=== PATIENT | female | born 1965 | race Two or more races ===

== ENCOUNTER 2017-08-31 11:13 | Outpatient (CLI) | payer OTHER ==
[~2017-08-31] VITALS: Ht 152.4 cm; Wt 59.0 kg
[2017-08-31] MEDS ORDERED: CEFUROXIME500 MG PO (12:37)
[2017-08-31] MEDS ORDERED: AYR SALINE NA14.1 GM NASAL (12:38)
[2017-08-31] MEDS ORDERED: CLARITIN10 MG PO (12:38)
== END 2017-08-31 11:30 | disposition home or self-care (01) ==
LOC: OFIC 805 11:13
DX: R05 Cough (principal); J32.8 Other chronic sinusitis; R04.0 Epistaxis; J34.2 Deviated nasal septum

== ENCOUNTER 2017-09-28 13:03 | Outpatient (CLI) | payer OTHER ==
[~2017-09-28] VITALS: Ht 152.4 cm; Wt 59.0 kg
[~2017-09-28 13:03] MED LIST: AYR SALINE NA14.1 GM NASAL; CEFUROXIME500 MG PO; CLARITIN10 MG PO
[2017-09-28] MEDS ORDERED: CLARITIN10 MG PO (13:38)
[2017-09-28] MEDS ORDERED: AYR SALINE NA14.1 GM NASAL (13:38)
== END 2017-09-28 14:51 | disposition home or self-care (01) ==
LOC: OFIC 805 13:03
DX: J32.8 Other chronic sinusitis (principal); J34.2 Deviated nasal septum

== ENCOUNTER → 2022-04-19 | Outpatient (CLI) | payer OTHER | END | disposition home or self-care (01) | LOC: NUCLEAR 04-06 08:00 | PROVIDERS: ATTEND Specialist | DX: I25.9 Chronic ischemic heart disease, unspecified (principal); R07.2 Precordial pain | CPT/HCPCS: 78452; 93017; A9500 ==

== ENCOUNTER 2024-11-23 07:16 | Outpatient (CLI) | payer OTHER | END 2024-11-23 07:17 | disposition home or self-care (01) | LOC: NUCLEAR 07:16 | PROVIDERS: ATTEND Specialist | DX: I20.9 Angina pectoris, unspecified (principal) ==